=== PATIENT | male | born 1955 | race Caucasian/White ===

== ENCOUNTER 2016-08-01 08:05 | Emergency (ER) | payer OTHER ==
[2016-08-01] MEDS ORDERED: TETANUS, DIPHTHERIA TOX (7YR+) 0.5 ML INJ IM ONE (08:15)
[2016-08-01] MEDS ORDERED: TDAP ADULT 0.5 ML INJ (BOOSTRIX) IM ONE (08:21)
[2016-08-01 08:23] VITALS: BP 132/96; PULSE 83; RESP 18; TEMP 98.6; O2SAT 95
--- NOTE | 2016-08-01 08:30 | EDPHY ---
H & P Time Seen by Provider: 08/01/16 08:15 HPI/ROS: HPI Dog bite. 60-year-old male by private vehicle. He reports that he was bitten by his neighbor's dog in the left upper lip and the right thigh. Denies any significant bleeding. Denies any significant pain. No associated numbness or weakness. He has not had a tetanus shot in some time and is requesting a tetanus booster. He has no other complaint. He denies history of diabetes. ROS: Constitutional: No fever, no chills. No weakness. Eyes: No discharge. No changes in vision. ENT: As above. Musculoskeletal: No back pain. No neck pain. No extremity pain. Skin: No rashes. Small puncture wound to left upper lip. Otherwise no lacerations. Neurological: No headache. No focal weakness or altered sensation. Past medical history: Knee and wrist surgery, high cholesterol, bipolar. Social history: Here by himself. Nonsmoker. No alcohol. Physical Exam: General Appearance: Alert, no distress. This patient is responding to questions appropriately and in full sentences. This patient appears well- hydrated and well-nourished. Eyes: Pupils equal and round no pallor or injection. No lid edema, erythema or injection. ENT, Mouth: Mucous membranes are moist. The pharyngeal tissues are unremarkable. No edema or swelling. No asymmetry suggestive of abscess. No erythema or exudates. Tiny, approximately less than 1 mm superficial puncture wound with 1-2 mm linear abrasion left upper lip mucosa. The vermilion border is not involved. This is not a through and through puncture wound. No evidence of foreign body on palpation. No bleeding. Neurological: Motor sensory function is grossly intact. Cranial nerves are normal. Gait is normal. Skin: Warm and dry, no rashes. Small circular area of ecchymosis right medial mid thigh. No laceration, abrasion or puncture wound. Musculoskeletal: Neck is supple and nontender. Extremities are symmetrical. All joints range without pain or impingement. Psychiatric: No agitation. No depression. Database: EKG: Imaging: Procedures: Emergency department course: After my evaluation, the patient was given a Boostrix vaccination. He was given 875 mg of Augmentin. He is comfortable going home. He has no other complaints. Follow-up and return to emergency department precautions were reviewed with him. All of his questions were answered. He was discharged in good condition. He will be prescribed Augmentin, 875 mg for 3 days. Differential Diagnosis: The differential diagnosis on this patient includes but is not limited to dog bite to left upper lip and right thigh. Significant neurovascular injury, retained foreign body unlikely. This represents a partial list of diagnoses considered. These considerations are based on history, physical exam, past history, reassessment and diagnostic testing. Smoking Status: Former smoker Constitutional: Initial Vital Signs Temperature (C) 37.0 C 08/01/16 08:22 Heart Rate 83 08/01/16 08:22 Respiratory Rate 18 08/01/16 08:22 Blood Pressure 132/96 H 08/01/16 08:22 O2 Sat (%) 95 08/01/16 08:22 O2 Delivery Mode Room Air Allergies/Adverse Reactions: No Known Allergies Allergy (Verified 08/01/16 08:21) Home Medications: Medication Instructions Recorded Atorvastatin Calcium [Lipitor 20 20 mg PO DAILY 08/12/12 mg (RX)] Divalproex ER [Depakote ER 250 MG 250 mg PO DAILY 08/12/12 (RX)] QUETIAPINE FUMARATE [SEROQUEL] 08/12/12 Doxepin HCl 02/09/14 Hydrocortisone 0.2% Valerate 1 lloyd TP TID #1 crtube 02/09/14 [Westcort 0.2% Cream] buPROPion 02/09/14 Amoxicillin/Clavulanate Pot 875 mg PO BID 3 Days 08/01/16 [Augmentin 875 mg tab] Departure - Departure Disposition: Home, Routine, Self-Care Clinical Impression: Dog bite of skin of lip, Dog bite of right thigh Condition: Good Instructions: Animal Bite (ED) Additional Instructions: Read and follow provided instructions. Follow-up with your primary care physician in 1-2 days for re-evaluation. Take antibiotic as prescribed through entire course of treatment Ibuprofen dosin mg every 6 hours with meals for the next 3 days only. Return to the emergency department for worsening pain, swelling, bleeding, fever , discoloration or other serious concerns. Referrals: Florentin Velasquez MD [Primary Care Provider] - As per Instructions Prescriptions: Amoxicillin/Clavulanate Pot [Augmentin 875 mg tab] 875 mg PO BID 3 Days
[2016-08-01] MEDS ORDERED: AMOXICILLIN/CLAVULANATE POT 875/125 MG TAB PO ONE (08:32)
== END 2016-08-01 08:39 | disposition home or self-care (01) ==
LOC: CED 08:05
PROC: 3E0234Z Introduction of Serum, Toxoid and Vaccine into Muscle, Percutaneous Approach (ICD-10-PCS; principal; 2016-08-01)
DX: S01.551A Open bite of lip, initial encounter (principal); S71.151A Open bite, right thigh, initial encounter; Z23 Encounter for immunization; Z87.891 Personal history of nicotine dependence; W54.0XXA Bitten by dog, initial encounter

== ENCOUNTER → 2017-07-29 | Outpatient (CLI) | payer OTHER | LOC: CIMAGING 11:38 | PROVIDERS: ATTEND Family Medicine | DX: M25.512 Pain in left shoulder (principal); R60.9 Edema, unspecified | CPT/HCPCS: 73030-PO; 93971-PO ==

== ENCOUNTER → 2017-12-11 | Outpatient (CLI) | payer OTHER | PROVIDERS: ATTEND Physician Assistant | DX: R13.10 Dysphagia, unspecified (principal); K21.9 Gastro-esophageal reflux disease without esophagitis | CPT/HCPCS: 92611-GN ==